=== PATIENT | male | born 1935 | race Caucasian/White ===

== ENCOUNTER 2024-01-17 16:51 | Inpatient (IN) | payer MEDICARE, OTHER ==
[~2024-01-17] VITALS: Ht 167.6 cm; Wt 87.1 kg
[2024-01-17 17:07] VITALS: BP 110/68; TEMP 98; O2SAT 97
[2024-01-17] MEDS ORDERED: ACETAMINOPHEN 325 MG TABLET PO PRN (17:15)
[2024-01-17] MEDS ORDERED: ZOLPIDEM 5 MG TABLET PO PRN (17:15)
[2024-01-17] MEDS ORDERED: TEMA15CA5 PO (18:29)
[2024-01-17] MEDS ORDERED: ASPI-1420 PO (18:29)
[2024-01-17] MEDS ORDERED: FURO-152 PO (18:29)
[2024-01-17] MEDS ORDERED: BENA20TA78 PO (18:29)
[2024-01-17] MEDS ORDERED: CARV25TA PO (18:29)
[2024-01-17] MEDS ORDERED: ESOM40CA PO (18:29)
[2024-01-17] MEDS ORDERED: ATOR40TA PO (18:29)
[2024-01-17] MEDS ORDERED: TAMS-3 PO (18:29)
[2024-01-17] MEDS ORDERED: FINA5TAB3 PO (18:29)
[2024-01-17] MEDS ORDERED: ALPR1TAB7 PO (18:29)
[2024-01-17] MEDS ORDERED: CLOP75TA15 PO (18:29)
[2024-01-17 19:48] VITALS: BP 116/64; TEMP 98.1
[2024-01-17] MEDS: CLOPIDOGREL 75 MG TABLET PO SCH (21:13)
[2024-01-17] MEDS: DONEPEZIL 5 MG TABLET PO SCH (21:13)
[2024-01-17] MEDS: TAMSULOSIN HCL 0.4 MG CAP.SR.24H PO SCH (21:14)
[2024-01-17] MEDS: TEMAZEPAM 15 MG CAPSULE PO SCH (21:14)
[2024-01-17] MEDS: ATORVASTATIN 40 MG TABLET PO SCH (21:14)
[2024-01-17] MEDS: DIVALPROEX SPRINKLE 125 MG CAP.SPRINK PO SCH (21:20)
[2024-01-17] MEDS: CLONAZEPAM 0.5 MG TABLET PO PRN (22:30)
[2024-01-18] MEDS: PANTOPRAZOLE SODIUM 40 MG TABLET.DR PO SCH (06:29)
[2024-01-18 07:59] VITALS: BP 111/59; TEMP 98.2; O2SAT 97
[2024-01-18 08:21] LABS: BASOPHILS % (AUTO) 0.2 % (0.0-2.0); EOSINOPHILS # (AUTO) 0.1 K/uL (0.0-0.7); EOSINOPHILS % (AUTO) 1.2 % (0.0-7.0); HEMATOCRIT 43.7 % (36.7-47.1); HEMOGLOBIN 14.5 g/dL (12.5-16.3); LYMPHOCYTES # (AUTO) 2.7 K/uL (0.8-4.8); LYMPHOCYTES % (AUTO) 26.6 % (20.5-51.5); MEAN CORPUSCULAR HEMOGLOBIN 25.5 uug (23.8-33.4); MEAN CORPUSCULAR HGB CONC 33 g/dL (32.5-36.3); MEAN CORPUSCULAR VOLUME 76.8 fL (73.0-96.2); MONOCYTES # (AUTO) 0.9 K/uL (0.1-1.30); MONOCYTES % (AUTO) 9.2 % (0.0-11.0); NEUTROPHILS # (AUTO) 6.4 K/uL (1.8-8.9); NEUTROPHILS % (AUTO) 62.8 % (38.5-71.5); PLATELET COUNT (AUTO) 414 K/uL (152-348); RED BLOOD CELL COUNT(AUTO) 5.69 MIL/uL (4.06-5.63); RED CELL DISTRIBUTION WIDTH 15.6 % (12.1-16.2); WHITE BLOOD COUNT (AUTO) 10.2 K/uL (3.6-10.2)
[2024-01-18] MEDS: risperiDONE-M 0.5 MG TAB.RAPDIS PO SCH (08:21)
[2024-01-18] MEDS: ASPIRIN EC 81 MG TABLET.DR PO SCH (08:21)
[2024-01-18] MEDS: FINASTERIDE 5 MG TABLET PO SCH (08:21)
[2024-01-18] MEDS: FUROSEMIDE 20 MG TABLET PO SCH (08:21)
[2024-01-18] MEDS: BENAZEPRIL HCL 20 MG TABLET PO SCH (08:22)
[2024-01-18] MEDS: CARVEDILOL 25 MG TABLET PO SCH (08:22)
[2024-01-18 08:45] LABS: DIFFERENTIAL COMMENT 1
[2024-01-18 08:46] LABS: ALANINE AMINOTRANSFERASE 14 U/L (16-63); ALBUMIN 3.5 g/dL (3.4-5.0); ALKALINE PHOSPHATASE 68 U/L (50-136); ASPARTATE AMINOTRANSFERASE 7 U/L (15-37); BILIRUBIN,TOTAL 1.2 mg/dL (0.2-1.0); CALCIUM 8.6 mg/dL (8.5-10.1); CARBON DIOXIDE 28 mmol/L (21-32); CHLORIDE 106 mmol/L (98-107); CREATININE 1.1 mg/dL (0.6-1.3); GLUCOSE 120 mg/dL (74-106); POTASSIUM 3.2 mmol/L (3.5-5.1); SODIUM SERUM 144 mmol/L (136-145); TOTAL PROTEIN, SERUM 6.7 g/dL (6.4-8.2); UREA NITROGEN, BLOOD 23 mg/dL (7-18)
[2024-01-18 08:50] LABS: THYROID STIMULATING HORMONE 5.729 mIU/mL (0.358-3.740)
[2024-01-18 09:18] LABS: PHOSPHOROUS 3.3 mg/dL (2.5-4.9)
[2024-01-18] MEDS: POTASSIUM CHLORIDE 20 MEQ TAB.PRT.SR PO ONE (12:50)
[2024-01-18 15:15] VITALS: BP 99/45; TEMP 98.2; O2SAT 98
[2024-01-18 22:46] VITALS: BP 110/42; TEMP 98; O2SAT 91
[2024-01-19] MEDS: CYANOCOBALAMIN 1,000 MCG TABLET PO SCH (09:09)
[2024-01-19 09:15] VITALS: BP 99/50; TEMP 98.4; O2SAT 94
[2024-01-19] MEDS ORDERED: PRAZ1CAP5 PO (13:09)
[2024-01-19] MEDS ORDERED: VITAMIN D2 PO (13:09)
[2024-01-19] MEDS ORDERED: ESCI5TAB16 PO (13:09)
[2024-01-19] MEDS ORDERED: ERGO500040 PO (13:14)
[2024-01-19] MEDS ORDERED: LINA145C PO (13:14)
[2024-01-19 20:00] VITALS: BP 122/51; TEMP 98; O2SAT 94
[2024-01-20 08:05] VITALS: BP 145/58; TEMP 98; O2SAT 96
[2024-01-20] MEDS: PRAZOSIN HCL 1 MG CAPSULE PO SCH (08:56)
[2024-01-20] MEDS ORDERED: Linaclotide (Linzess) 145 MCG) PO SCH (09:00)
[2024-01-20 15:21] VITALS: BP 108/55; TEMP 98.2; O2SAT 98
[2024-01-20 20:00] VITALS: BP 114/52; TEMP 98; O2SAT 95
[2024-01-21 08:01] VITALS: BP 123/42; TEMP 98; O2SAT 96
[2024-01-21] MEDS: ERGOCALCIFEROL 50,000 UNIT CAPSULE PO SCH (10:32)
[2024-01-21 15:30] VITALS: BP 96/47; TEMP 98; O2SAT 96
[2024-01-21 19:44] VITALS: BP 123/56; TEMP 98; O2SAT 92
[2024-01-22 08:10] VITALS: BP 161/57; TEMP 97.7; O2SAT 98
[2024-01-22 16:55] VITALS: BP 137/55; TEMP 97.9; O2SAT 98
[2024-01-23 07:45] VITALS: BP 122/53; TEMP 97.8; O2SAT 100
[2024-01-23 16:46] VITALS: BP 133/46; TEMP 98; O2SAT 96
[2024-01-23 20:00] VITALS: BP 129/55; TEMP 97.6; O2SAT 95
[2024-01-24 08:00] VITALS: BP 132/56; TEMP 98.3; O2SAT 97
[2024-01-24] MEDS: MAGNESIUM HYDROXIDE 30 ML LIQUID UDC PO PRN (08:59)
[2024-01-24] MEDS: GLUCERNA SHAKE 237 ML CAN PO SCH (12:39)
[2024-01-24 15:45] VITALS: BP 103/54; TEMP 98.1; O2SAT 97
[2024-01-24 19:55] VITALS: BP 116/55; TEMP 98.1; O2SAT 96
[2024-01-25 09:50] VITALS: BP 92/47; TEMP 98.2; O2SAT 96
[2024-01-25 15:03] VITALS: BP 116/52; TEMP 98.2; O2SAT 94
[2024-01-25 20:00] VITALS: BP 122/60; TEMP 98; O2SAT 98
[2024-01-26 08:00] VITALS: BP 129/49; TEMP 97.8; O2SAT 94
[2024-01-26 16:00] VITALS: BP 159/60; TEMP 98.2; O2SAT 99
[2024-01-26 19:56] VITALS: BP 146/68; TEMP 98.1; O2SAT 98
[2024-01-27 08:00] VITALS: BP 129/65; TEMP 98; O2SAT 96
[2024-01-27 15:06] VITALS: BP 101/45; TEMP 97.6; O2SAT 94
[2024-01-27 19:59] VITALS: BP 111/54; TEMP 98.1; O2SAT 95
[2024-01-28 08:11] VITALS: BP 139/63; TEMP 98.6; O2SAT 96
[2024-01-28] MEDS: MAG HYDROX/AL HYDROX/SIMETH 30 ML LIQUID UDC PO PRN (12:05)
[2024-01-28 16:29] VITALS: BP 93/44; TEMP 98.2; O2SAT 99
== END 2024-01-28 15:40 | disposition home or self-care (01) | DRG 885 ==
LOC: GPS 16:51
PROVIDERS: ADMIT Psychiatry & Neurology Psychiatry; ATTEND Internal Medicine
DX: F29 Unspecified psychosis not due to a substance or known physiological condition (principal); F03.918 Unspecified dementia, unspecified severity, with other behavioral disturbance; F03.93 Unspecified dementia, unspecified severity, with mood disturbance; F03.94 Unspecified dementia, unspecified severity, with anxiety; D68.59 Other primary thrombophilia; E11.9 Type 2 diabetes mellitus without complications; F41.9 Anxiety disorder, unspecified; N40.0 Benign prostatic hyperplasia without lower urinary tract symptoms; K21.9 Gastro-esophageal reflux disease without esophagitis; Z91.148 Patient's other noncompliance with medication regimen for other reason; E78.5 Hyperlipidemia, unspecified; E87.6 Hypokalemia; I25.10 Atherosclerotic heart disease of native coronary artery without angina pectoris; Z79.899 Other long term (current) drug therapy; E66.9 Obesity, unspecified; Z68.31 Body mass index [BMI] 31.0-31.9, adult; R31.29 Other microscopic hematuria; Z74.09 Other reduced mobility; I11.9 Hypertensive heart disease without heart failure
CPT/HCPCS: 36415; 83550; 83735; 84100; 84153; 84443; 85025; 93005